=== PATIENT | male | born 1965 | race Caucasian/White ===

== ENCOUNTER → 2016-05-11 | Outpatient (CLI) | payer MEDICARE, OTHER ==
[~2016-05-11] MED LIST: ALBUAER3 INH; ALPR1TAB3 PO; BUPR300T PO; CYCL1TAB29 PO; EPIP0.3I IM; FLUT1SPR5 EACH NARE; GABA600T PO; HYDR-3583 PO; LACTCHW3 CHEW; LISI10TA PO; PRAV80TA2 PO; [UNRECOGNIZED DRUG - OTHER]
[2016-05-11 10:06] LABS: ALKALINE PHOSPHATASE 79 U/L (45-117); ALT (GPT) 40 U/L (12-78); ANION GAP 9 MEQ/L (5-15); AST (GOT) 25 U/L (15-37); BLOOD UREA NITROGEN 15 MG/DL (7-18); CHLORIDE 99 MEQ/L (98-107); GLOMERULAR FILTRATION RATE 93 ML/MIN (>89); GLUCOSE,FASTING 93 MG/DL (74-99); HDL CHOLESTEROL 47.1 MG/DL (40.0-60.0); LDL CHOLESTEROL 148 MG/DL (0-99); SODIUM (NA) 136 MEQ/L (136-145); TOTAL BILIRUBIN ADULT 0.8 MG/DL (0.2-1.0)
== END ==
LOC: CLAB 09:19
PROVIDERS: ATTEND Family Medicine
DX: E78.5 Hyperlipidemia, unspecified (principal); I10 Essential (primary) hypertension
CPT/HCPCS: 36415; 80053; 80061; 99213; G0463

== ENCOUNTER 2016-09-02 12:26 | Emergency (ER) | payer MEDICARE, OTHER ==
[~2016-09-02] VITALS: Ht 177.8 cm; Wt 75.0 kg
[~2016-09-02 12:26] MED LIST changes: -BUPR300T PO
[2016-09-02 12:28] VITALS: BP 106/57; PULSE 119; RESP 20; TEMP 98.3; O2SAT 97
--- NOTE | 2016-09-02 12:51 | PD ---
Physical Exam Time Seen by Provider: 12:50 Narrative 51 y/o male with lateral R ankle redness, ulceration which started 10 days ago. He thought that maybe a mosquito originally bit him. Vital signs reviewed. Seen at triage desk. Awaiting bed placement. Data Data Last Documented VS Vital Signs Date Time Temp Pulse Resp B/P Pulse Ox O2 Delivery O2 Flow Rate FiO2 09/02/16 12:28 98.3 119 20 106/57 97 Room Air [facility] Medical Record Reviewed: Yes Supervised Visit with CORINE: No Peter Bobby Sep 02, 2016 12:51
== END 2016-09-02 15:17 | disposition left against medical advice (07) ==
LOC: NED 12:26
DX: L97.319 Non-pressure chronic ulcer of right ankle with unspecified severity (principal); Z53.21 Procedure and treatment not carried out due to patient leaving prior to being seen by health care provider
CPT/HCPCS: 99281

== ENCOUNTER 2016-10-30 11:43 | Emergency (ER) | payer MEDICARE, OTHER ==
[~2016-10-30] VITALS: Ht 177.8 cm; Wt 78.0 kg
[2016-10-30 11:46] VITALS: BP 131/113; PULSE 107; RESP 20; TEMP 98; O2SAT 100
[2016-10-30 11:51] VITALS: BP_SYST 145; BP_SYST 147; BP_DIAS 96; PULSE 116
--- NOTE | 2016-10-30 11:51 | PD ---
Physical Exam Date Seen by Provider: Oct 30, 2016 Time Seen by Provider: 11:47 Narrative 51-year-old presents to emergency department with pain in the left leg status post fall 4 weeks ago. Patient has been seen by her primary care physician, Dr. Pizarro, and has been given orders for x-rays at [facility] which she is unable to get to. Patient has history of lumbar surgery with previous surgery by Dr. Ramos with hardware in place. Patient continues to have sciatic type symptoms in the left leg always down the leg. Patient is having to use a cane for ambulation. Pain is a 9 out of 10. Patient has multiple allergies, see list. X-rays Ordered Vital signs stable. Patient awaiting medical bed placement. Data Data Last Documented VS Vital Signs Date Time Temp Pulse Resp B/P (MAP) Pulse Ox O2 Delivery O2 Flow Rate FiO2 10/30/16 11:46 98.0 107 20 131/113 (119) 100 Room Air [facility] Medical Record Reviewed: Yes Supervised Visit with CORINE: Yes Condition: Stable Adrian Carroll Oct 30, 2016 11:51
[2016-10-30 12:30] VITALS: BP 124/85; PULSE 89; RESP 17; TEMP 97.8; O2SAT 100
[2016-10-30] MEDS ORDERED: KETOROLAC TROMETHAMINE 60 MG/2 ML (IM) VIAL IM ONE (12:45)
[2016-10-30] MEDS ORDERED: DEXAMETHASONE SOD PHOS 20 MG/5 ML VIAL IM ONE (12:45)
[2016-10-30] MEDS ORDERED: ORPHENADRINE INJ 60 MG/2 ML AMP IM ONE (12:45)
--- NOTE | 2016-10-30 12:55 | PD ---
Physical Exam Date Seen by Provider: Oct 30, 2016 Narrative Sciatica GENERAL: Patient is awake and alert and does not appear to be in any distress. SKIN: Warm and dry with no rash or lesions. HEAD: Normocephalic/atraumatic. EYES: Pupils are equal. Extraocular movements are intact. NECK: Full range of motion with no apparent pain. CARDIOVASCULAR: Regular rate and rhythm. RESPIRATORY: Nonlabored respirations. MUSCULOSKELETAL: Atraumatic. NEUROLOGICAL: Awake and alert and fully oriented. Cranial nerves are intact. He is moving all 4 extremities equally. PSYCHIATRIC: Appropriate mood and affect. Data Data Last Documented VS Vital Signs Date Time Temp Pulse Resp B/P (MAP) Pulse Ox O2 Delivery O2 Flow Rate FiO2 10/30/16 12:03 98 17 10/30/16 11:51 145/96 (112) 10/30/16 11:46 98.0 100 Room Air Orders Orders Hip, Uni(Ap&Lat) Wo Ap Pelvis (10/30/16 12:36) Spine, Lumbar Comp W/Obliq (10/30/16 12:36) Sacrum And Coccyx (10/30/16 ) Dexamethasone Inj (Decadron Inj) (10/30/16 12:45) Ketorolac Inj (Toradol Inj) (10/30/16 12:45) Orphenadrine Inj (Norflex Inj) (10/30/16 12:45) MDM Supervised Visit with CORINE: Yes Narrative Course I, Dr. John, have reviewed the advance practice practitioner's documentation and am in agreement, met with the patient face to face, made the diagnosis, and the medical decision making was done by me. *My assessment and Findings: This is a well-appearing man who presents complaining with acute exacerbation of his sciatica. The pain started after a fall. X-rays are pending. Please see Lauren Worrell's note for final diagnosis and disposition. Condition: Stable Alyssa John MD Oct 30, 2016 12:55
[2016-10-30 13:00] VITALS: BP 127/88; PULSE 89; RESP 17; TEMP 97.8; O2SAT 98
[2016-10-30] MEDS ORDERED: diphenhydrAMINE HCL 50 MG/ML VIAL IM ONE (13:00)
[2016-10-30 13:43] VITALS: RESP 17
--- NOTE | 2016-10-30 14:01 | PD ---
HPI Chief Complaint: Musculoskeletal Complaint Time Seen by Provider: 12:00 Travel History International Travel<30 days: No Contact w/Intl Traveler<30days: No Traveled to known affect area: No History of Present Illness HPI Patient is a 51-year-old male that presented to emergency for evaluation of back pain that radiates from his back to his left buttock down the left leg. Patient states that one month ago he fell while mopping the floor. When he fell he basically did a split and landed on his tailbone. He reports a history of back pain secondary to an accident that required surgical correction 9 years ago. He states his pain is a 7 out of 10 and states it's aching and shooting. He has seen his primary doctor for this 2 weeks ago. He currently takes gabapentin and hydrocodone. He reports residual numbness and weakness in his left foot secondary to the surgery he had 9 years ago. PFSH Past Medical History Anxiety: Yes Cardiovascular Problems: Yes High Cholesterol: Yes Diabetes: No Diminished Hearing: No Diverticulitis: Yes Gastrointestinal Disorders: Yes Genitourinary: Yes Headaches: Yes Hypertension: Yes Kidney Stones: Yes Musculoskeletal: Yes (chronic back pain) Psychiatric: Yes Immunizations Current: No Tetanus Vaccination: < 5 Years Influenza Vaccination: Yes Past Surgical History Genitourinary Surgery: Yes (KIDNEY STONES 11 TIMES STENTS X 2) Other Surgery: Yes (URETER LT. STENT ) Family History Family Hypercholesterolemia: Yes Social History Alcohol Use: No Tobacco Use: Yes (1/2 ppd) Substance Use: No Allergies-Medications (Allergen,Severity, Reaction): Coded Allergies: ketorolac (Verified Allergy, Severe, Shortness of Breath, 10/30/16) varenicline (Verified Allergy, Intermediate, swelling, 10/30/16) bee venom protein (honey bee) (Unverified Allergy, Mild, swollen, 10/30/16) codeine (Verified Adverse Reaction, Intermediate, ITCHING, 10/30/16) tramadol (Verified Adverse Reaction, Intermediate, itch, 10/30/16) Reported Meds & Prescriptions Reported Meds & Active Scripts Active Alprazolam 1 Mg Tab 1 Mg PO Q6H PRN Flexeril (Cyclobenzaprine HCl) 10 Mg Tab 10 Mg PO TID Proair Hfa 8.5 GM Inh (Albuterol Sulfate) 90 Mcg/Act Aer 1 Puff INH Q4H PRN 108 mcg/actuation Hydrocodone-Acetaminophen 10-325 mg Tab 1 Tab PO Q6H PRN Lisinopril-Hctz 10-12.5 Mg Tab 1 Tab PO DAILY Pravastatin 80 Mg Tab 40 Mg PO HS Lactinex (Lactobacillus Acidophilus) 1 Chew 1 Tab CHEW BID Gabapentin 600 Mg Tab 600 Mg PO TID Flonase Nasal [place] (Fluticasone Nasal [place]) 50 Mcg/Act [place] 100 Mcg EACH NARE BID Reported Epipen 2-Db Inj (Epinephrine) 0.3 Mg/0.3 Ml Pfpen 0.3 Mg IM ONCE PRN Review of Systems Except as stated in HPI: all other systems reviewed are Neg Musculoskeletal: Positive: Myalgias, Pain Physical Exam Narrative GENERAL: Thin, well-developed, alert male. Resting comfortably in no acute distress. SKIN: Warm and dry. HEAD: Atraumatic. Normocephalic. EYES: Pupils equal and round. No scleral icterus. No injection or drainage. ENT: No nasal bleeding or discharge. Mucous membranes pink and moist. NECK: Trachea midline. No JVD. CARDIOVASCULAR: Regular rate and rhythm. RESPIRATORY: No accessory muscle use. Clear to auscultation. Breath sounds equal bilaterally. GASTROINTESTINAL: Abdomen soft, non-tender, nondistended. Hepatic and splenic margins not palpable. MUSCULOSKELETAL: Extremities without clubbing, cyanosis, or edema. No obvious deformities. NEUROLOGICAL: Awake and alert. No obvious cranial nerve deficits. Motor grossly within normal limits. Five out of 5 muscle strength in the arms and legs. Normal speech. PSYCHIATRIC: Appropriate mood and affect; insight and judgment normal. Data Data Last Documented VS Vital Signs Date Time Temp Pulse Resp B/P (MAP) Pulse Ox O2 Delivery O2 Flow Rate FiO2 10/30/16 13:43 17 10/30/16 13:00 97.8 89 127/88 (101) 98 Room Air Orders Orders Hip, Uni(Ap&Lat) Wo Ap Pelvis (10/30/16 12:36) Spine, Lumbar Comp W/Obliq (10/30/16 12:36) Sacrum And Coccyx (10/30/16 ) Dexamethasone Inj (Decadron Inj) (10/30/16 12:45) Ketorolac Inj (Toradol Inj) (10/30/16 12:45) Orphenadrine Inj (Norflex Inj) (10/30/16 12:45) Diphenhydramine Inj (Benadryl Inj) (10/30/16 13:00) [facility] Medical Decision Making Medical Screen Exam Complete: Yes Emergency Medical Condition: Yes Interpretation(s) Last Impressions Lumbar Spine X-Ray 10/30/16 1236 Signed Impressions: Service Date/Time: Sunday, October 30, 2016 13:05 - CONCLUSION: 1. No acute fracture malalignment. 2. Remote laminectomy and fusion at the L5-S1 level which is stable and intact. 3. Mild to moderate degenerative disc change at the L4-5 level. Michael Up MD Hip X-Ray 10/30/16 1236 Signed Impressions: Service Date/Time: Sunday, October 30, 2016 13:06 - CONCLUSION: Unremarkable examination of the left hip. Michael Up MD Sacrum and Coccyx X-Ray 10/30/16 0000 Signed Impressions: Service Date/Time: Sunday, October 30, 2016 13:08 - CONCLUSION: Distal oblique sacral fracture. Michael Up MD Vital Signs Date Time Temp Pulse Resp B/P (MAP) Pulse Ox O2 Delivery O2 Flow Rate FiO2 10/30/16 13:43 17 10/30/16 13:00 97.8 89 17 127/88 (101) 98 Room Air 10/30/16 12:30 97.8 89 17 124/85 (98) 100 Room Air 10/30/16 12:03 98 17 10/30/16 11:51 116 145/96 (112) 10/30/16 11:46 98.0 107 20 131/113 (119) 100 Room Air Differential Diagnosis Sciatica versus fracture versus sprain versus strain versus discogenic pain versus other Narrative Course Patient is a 51-year-old male presenting with 1 month of left buttock and tailbone pain. Exam appears most consistent with sciatica. Patient was supposed to have outpatient imaging done but was unable to get a [place] and his primary doctor told him to come to the emergency department. X-ray of the lumbar spine and hip ordered and pending. Patient given Toradol, Norflex, dexamethasone. Patient was asked about his allergies and he initially reported as bees and codeine. He was administered the Toradol and felt as if his throat was getting swollen. He was then administered 50 mg IM Benadryl. Patient's airway remains patent, he is resting in no acute distress. X-ray of the left hip shows no acute abnormality X-ray of the lumbar spine shows surgical changes, no acute abnormality identified X-ray of the sacrum and coccyx shows Distal oblique sacral fracture Patient has been resting comfortably, he is not exhibiting any signs of allergic reaction to the Toradol that was administered previously. He states that it was one of those "T" words he is allergic to. At this time patient will be discharged home, he was given copies of radiology reports to take to his primary doctor. He was encouraged to obtain a doughnut to sit on. He will be given a short course of oral steroids as well as ibuprofen. His primary doctor in 1-2 days and he was given strict return call shows. Patient verbalized understanding of instructions. Patient is stable for discharge. Diagnosis Primary Impression: Sciatica Qualified Codes: M54.32 - Sciatica, left side Additional Impression: Sacral fracture, closed Qualified Codes: S32.10XA - Unspecified fracture of sacrum, initial encounter for closed fracture Referrals: Primary Care Physician 2 days Patient Instructions: General Instructions, Sacral Fracture (ED), Sciatica (ED) Additional Instructions: Follow-up with your primary doctor Take medications as directed Obtain a doughnut pillow to sit on from local pharmacy Return to emergency department for any new or worsening symptoms Med/Other Pt SpecificInfo: Prescription(s) given Scripts Prednisone (Prednisone) 50 Mg Tab 50 MG PO DAILY for 5 Days, #5 TAB 0 Refills Prov: Lauren Sanchez 10/30/16 Ibuprofen (Ibuprofen) 800 Mg Tab 800 MG PO Q6HR Y for PAIN, #40 TAB 0 Refills Prov: Lauren Sanchez 10/30/16 Disposition: 01 DISCHARGE HOME Condition: Stable Lauren Sanchez Oct 30, 2016 14:01
--- NOTE | 2016-10-30 14:07 | RADRPT ---
EXAM DATE/TIME: 10/30/2016 13:06 [facility] COMPARISON: No previous studies available for comparison. INDICATIONS : Patient states fell one month ago, Complains of pain that radiates down leg. MEDICAL HISTORY : Chronic Back Pain SURGICAL HISTORY : Fusion, lumbar. Renal Stents ENCOUNTER: Initial ACUITY: 1 month PAIN SCORE: 8/10 LOCATION: Left pelvis FINDINGS: A two view examination of the left hip was performed. The primary and secondary trabecular pattern o f the femoral neck is intact. The hip joint is of normal width without significant sclerosis or bony hypertrophy. The acetabulum is grossly intact. CONCLUSION: Unremarkable examination of the left hip. Michael Up MD on October 30, 2016 at 14:05 Board Certified Radiologist. This report was verified electronically.
--- NOTE | 2016-10-30 14:07 | RADRPT ---
EXAM DATE/TIME: 10/30/2016 13:05 [facility] COMPARISON: SPINE LUMBAR LTD (AP & LAT), November 02, 2013, 14:01. INDICATIONS : Patient states fell one month ago, Complains of pain that radiates down leg. MEDICAL HISTORY : Chronic back pain SURGICAL HISTORY : Fusion, lumbar. Renal Stents ENCOUNTER: Initial ACUITY: 1 month PAIN SCORE: 10/10 LOCATION: Left lumbar spine FINDINGS: AP, lateral and oblique views of the lumbar spine were obtained and demonstrate that the patient is s tatus post remote laminectomy and fusion at the L5-S1 level with bilateral pedicle screws and posteri or fixation rods. Bone graft material and markers are noted in the interspace which is solid in appea gabby. There is no acute fracture or malalignment. Degenerative changes are noted at the L4-5 level w ith mild disc space narrowing and sclerosis. The facet joints are intact. The sacrum appears unremark able. CONCLUSION: 1. No acute fracture malalignment. 2. Remote laminectomy and fusion at the L5-S1 level which is stable and intact. 3. Mild to moderate degenerative disc change at the L4-5 level. Michael Up MD on October 30, 2016 at 14:03 Board Certified Radiologist. This report was verified electronically.
--- NOTE | 2016-10-30 14:09 | RADRPT ---
EXAM DATE/TIME: 10/30/2016 13:08 [facility] COMPARISON: SPINE LUMBAR LTD (AP & LAT), November 02, 2013, 14:01. INDICATIONS : Patient states fell one month ago, Complains of pain that radiates down leg. MEDICAL HISTORY : Chronic Back Pain SURGICAL HISTORY : Fusion, lumbar. Renal Stents ENCOUNTER: Initial ACUITY: 1 month PAIN SCORE: 10/10 LOCATION: Left pelvis FINDINGS: AP and lateral views of the sacrum and coccyx were obtained and demonstrate an oblique fracture throu gh the distal sacrum with slight distraction and minimal anterior displacement of the distal fracture fragment. There is overlying soft tissue prominence. The sacral ala are intact. Postoperative change s are noted in the lower lumbar spine status post laminectomy and fusion at the L5-S1 level. CONCLUSION: Distal oblique sacral fracture. Michael Up MD on October 30, 2016 at 14:05 Board Certified Radiologist. This report was verified electronically.
[2016-10-30] MEDS ORDERED: PRED50 PO (14:29)
[2016-10-30] MEDS ORDERED: IBUP800T23 PO (14:29)
[2016-10-30 14:37] VITALS: BP 126/81; TEMP 97.8
[2016-11-08] MEDS ORDERED: CANE/ALUMINUM/A1 MIS (10:13)
[2016-11-08] MEDS ORDERED: [UNRECOGNIZED DRUG - OTHER] (10:13)
[2016-11-08] MEDS ORDERED: FLUT1SPR5 EACH NARE (10:15)
[2016-11-08] MEDS ORDERED: PRAV80TA2 PO (10:15)
[2016-11-08] MEDS ORDERED: ZANT300T PO (10:15)
[2016-11-08] MEDS ORDERED: LACTCHW3 CHEW (10:15)
[2016-11-08] MEDS ORDERED: LISI10TA PO (10:15)
[2016-11-08] MEDS ORDERED: ALBUAER3 INH (10:15)
[2016-11-08] MEDS ORDERED: CYCL1TAB29 PO (10:15)
[2016-11-08] MEDS ORDERED: HYDR-3583 PO ×2 (10:21→11:14)
[2016-11-08] MEDS ORDERED: ALPR1TAB3 PO (10:21)
[2016-11-08] MEDS ORDERED: OXYC-392 PO (10:51)
[2016-11-09] MEDS ORDERED: PRAV80TA2 PO (08:50)
== END 2016-10-30 14:38 | disposition home or self-care (01) ==
LOC: NEPD 11:43
DX: M54.32 Sciatica, left side (principal); S32.10XA Unspecified fracture of sacrum, initial encounter for closed fracture; I10 Essential (primary) hypertension; W01.0XXA Fall on same level from slipping, tripping and stumbling without subsequent striking against object, initial encounter; Y93.E5 Activity, floor mopping and cleaning; Y92.009 Unspecified place in unspecified non-institutional (private) residence as the place of occurrence of the external cause; Z72.0 Tobacco use
CPT/HCPCS: 72110; 72220; 73502; 96372; 99284; J1100; J1200; J1885; J2360

== ENCOUNTER 2016-11-05 07:21 | Emergency (ER) | payer MEDICARE, OTHER ==
[~2016-11-05] VITALS: Ht 177.8 cm; Wt 76.0 kg
[~2016-11-05 07:21] MED LIST changes: +IBUP800T23 PO; +PRED50 PO; -[UNRECOGNIZED DRUG - OTHER]
[2016-11-05 07:23] VITALS: BP 172/127; PULSE 117; RESP 13; TEMP 97.2; O2SAT 97
[2016-11-05] MEDS ORDERED: ORPHENADRINE INJ 60 MG/2 ML AMP IM ONE (08:30)
[2016-11-05] MEDS ORDERED: DEXAMETHASONE SOD PHOS 4 MG/ML VIAL IM ONE (08:30)
[2016-11-05] MEDS ORDERED: ZANT300T PO (08:31)
[2016-11-05] MEDS ORDERED: PRED20 PO (08:31)
--- NOTE | 2016-11-05 08:31 | PD ---
HPI Chief Complaint: Pain: Acute or Chronic Time Seen by Provider: 07:32 Travel History International Travel<30 days: No Contact w/Intl Traveler<30days: No Traveled to known affect area: No History of Present Illness HPI 51-year-old male complains of severe back pain and left leg pain. Patient has history of chronic back pain with sciatica. Patient has been taking hydrocodone and Flexeril for pain. Patient states the pain is worse this morning. Patient has appointment with pain management and personal physician for back pain. Patient denies any new injury. Patient recently was diagnosed with sacral fracture. Patient denies any urinary or bowel incontinence. Patient denies any focal weakness and numbness of lower extremity. PFSH Past Medical History Anxiety: Yes Cardiovascular Problems: Yes High Cholesterol: Yes Diabetes: No Diminished Hearing: No Diverticulitis: Yes Gastrointestinal Disorders: Yes Genitourinary: Yes Headaches: Yes Hypertension: Yes Kidney Stones: Yes Musculoskeletal: Yes (chronic back pain) Psychiatric: Yes Immunizations Current: No Past Surgical History Genitourinary Surgery: Yes (KIDNEY STONES 11 TIMES STENTS X 2) Other Surgery: Yes (URETER LT. STENT ) Family History Family Hypercholesterolemia: Yes Social History Alcohol Use: No Tobacco Use: Yes (/2 ppd) Substance Use: No Allergies-Medications (Allergen,Severity, Reaction): Coded Allergies: ketorolac (Verified Allergy, Severe, Shortness of Breath, 11/05/16) varenicline (Verified Allergy, Intermediate, swelling, 11/05/16) bee venom protein (honey bee) (Unverified Allergy, Mild, swollen, 11/05/16) codeine (Verified Adverse Reaction, Intermediate, ITCHING, 11/05/16) tramadol (Verified Adverse Reaction, Intermediate, itch, 11/05/16) Reported Meds & Prescriptions Reported Meds & Active Scripts Active Prednisone 50 Mg Tab 50 Mg PO DAILY 5 Days Ibuprofen 800 Mg Tab 800 Mg PO Q6HR PRN Alprazolam 1 Mg Tab 1 Mg PO Q6H PRN Flexeril (Cyclobenzaprine HCl) 10 Mg Tab 10 Mg PO TID Proair Hfa 8.5 GM Inh (Albuterol Sulfate) 90 Mcg/Act Aer 1 Puff INH Q4H PRN 108 mcg/actuation Hydrocodone-Acetaminophen 10-325 mg Tab 1 Tab PO Q6H PRN Lisinopril-Hctz 10-12.5 Mg Tab 1 Tab PO DAILY Pravastatin 80 Mg Tab 40 Mg PO HS Lactinex (Lactobacillus Acidophilus) 1 Chew 1 Tab CHEW BID Gabapentin 600 Mg Tab 600 Mg PO TID Flonase Nasal [place] (Fluticasone Nasal [place]) 50 Mcg/Act [place] 100 Mcg EACH NARE BID Reported Epipen 2-Db Inj (Epinephrine) 0.3 Mg/0.3 Ml Pfpen 0.3 Mg IM ONCE PRN Review of Systems General / Constitutional: No: Fever Eyes: No: Visual changes HENT: No: Headaches Cardiovascular: No: Chest Pain or Discomfort Respiratory: No: Shortness of Breath Gastrointestinal: No: Abdominal Pain Genitourinary: No: Dysuria Musculoskeletal: No: Pain Skin: No Rash Neurologic: No: Weakness Psychiatric: No: Depression Endocrine: No: Polydipsia Hematologic/Lymphatic: No: Easy Bruising Physical Exam Narrative GENERAL: Well-nourished, well-developed patient. SKIN: Focused skin assessment warm/dry. HEAD: Normocephalic. EYES: No scleral icterus. No injection or drainage. NECK: Supple, trachea midline. No JVD or lymphadenopathy. CARDIOVASCULAR: Regular rate and rhythm without murmurs, gallops, or rubs. RESPIRATORY: Breath sounds equal bilaterally. No accessory muscle use. GASTROINTESTINAL: Abdomen soft, non-tender, nondistended. MUSCULOSKELETAL: No cyanosis, or edema. BACK: Patient has moderate tenderness on palpation lower lumbar area without obvious deformity. No CVA tenderness. Neurologic exam normal. Data Data Last Documented VS Vital Signs Date Time Temp Pulse Resp B/P (MAP) Pulse Ox O2 Delivery O2 Flow Rate FiO2 11/05/16 07:23 97.2 117 13 172/127 (142) 97 Orders Orders Orphenadrine Inj (Norflex Inj) (11/05/16 08:30) Dexamethasone Inj (Decadron Inj) (11/05/16 08:30) MDM Medical Decision Making Medical Screen Exam Complete: Yes Emergency Medical Condition: Yes Differential Diagnosis Differential diagnosis including acute exacerbation low back pain, sciatica, sacral fracture,HNP Narrative Course 51-year-old male with acute exacerbation low back pain. History of sciatica and sacral fracture. Norflex 60 mg IM. Decadron 8 mg IM. Diagnosis Primary Impression: Exacerbation of chronic back pain Additional Impressions: Sciatica Qualified Codes: M54.32 - Sciatica, left side Sacral fracture, closed Qualified Codes: S32.10XG - Unspecified fracture of sacrum, subsequent encounter for fracture with delayed healing Patient Instructions: General Instructions Additional Instructions: Continue with medications. Prednisone is directed. Follow-up with personal physician, orthopedist and pain management. Med/Other Pt SpecificInfo: Prescription(s) given Scripts Ranitidine (Zantac) 300 Mg Tab 300 MG PO DAILY, #10 TAB 0 Refills Prov: Tevin Garcia MD 11/05/16 Prednisone (Prednisone) 20 Mg Tab 20 MG PO BID, #10 TAB 0 Refills Prov: Tevin Garcia MD 11/05/16 Disposition: 01 DISCHARGE HOME Condition: Stable Tevin Garcia MD Nov 05, 2016 08:31
[2016-11-08] MEDS ORDERED: CANE/ALUMINUM/A1 MIS (10:13)
[2016-11-08] MEDS ORDERED: [UNRECOGNIZED DRUG - OTHER] (10:13)
[2016-11-08] MEDS ORDERED: PRAV80TA2 PO (10:15)
[2016-11-08] MEDS ORDERED: LISI10TA PO (10:15)
[2016-11-08] MEDS ORDERED: FLUT1SPR5 EACH NARE (10:15)
[2016-11-08] MEDS ORDERED: LACTCHW3 CHEW (10:15)
[2016-11-08] MEDS ORDERED: ZANT300T PO (10:15)
[2016-11-08] MEDS ORDERED: ALBUAER3 INH (10:15)
[2016-11-08] MEDS ORDERED: CYCL1TAB29 PO (10:15)
[2016-11-08] MEDS ORDERED: HYDR-3583 PO ×2 (10:21→11:14)
[2016-11-08] MEDS ORDERED: ALPR1TAB3 PO (10:21)
[2016-11-08] MEDS ORDERED: OXYC-392 PO (10:51)
[2016-11-09] MEDS ORDERED: PRAV80TA2 PO (08:50)
== END 2016-11-05 09:25 | disposition home or self-care (01) ==
LOC: NEPC 07:21
DX: M54.9 Dorsalgia, unspecified (principal); G89.29 Other chronic pain; M54.32 Sciatica, left side; S32.10XD Unspecified fracture of sacrum, subsequent encounter for fracture with routine healing; F41.9 Anxiety disorder, unspecified; E78.00 Pure hypercholesterolemia, unspecified; K57.92 Diverticulitis of intestine, part unspecified, without perforation or abscess without bleeding; I10 Essential (primary) hypertension; X58.XXXD Exposure to other specified factors, subsequent encounter
CPT/HCPCS: 96372; 99284; J1100; J2360

== ENCOUNTER → 2017-01-28 | Outpatient (CLI) | payer MEDICARE, OTHER ==
[~2017-01-28] MED LIST changes: +CANE/ALUMINUM/A1 MIS; +CYCL10TA PO; -CYCL1TAB29 PO; +IBUP1TAB7 PO; -IBUP800T23 PO; -PRED50 PO; +ZANT300T PO; +[UNRECOGNIZED DRUG - OTHER]
[2017-01-28 13:27] LABS: AUTOMATED NEUTROPHIL # 4.9 TH/MM3 (1.8-7.7); BASOPHIL % 0.7 % (0.0-2.0); EOSINOPHIL # 0.1 TH/MM3 (0-0.4); EOSINOPHIL % 0.9 % (0.0-4.0); HEMATOCRIT 45.9 % (39.0-51.0); HEMO FLAGS DIFF FINAL; LYMPH % 21.3 % (9.0-44.0); LYMPHOCYTE # 1.5 TH/MM3 (1.0-4.8); MEAN CELL VOLUME 92.6 FL (80.0-100.0); MEAN CORPUSCULAR HEMOGLOBIN 32.1 PG (27.0-34.0); MEAN CORPUSCULAR HGB CONC 34.7 % (32.0-36.0); MONO % 8.3 % (0.0-8.0); NEUT % 68.8 % (16.0-70.0); PLATELET COUNT 375 TH/MM3 (150-450); RED BLOOD COUNT 4.96 MIL/MM3 (4.50-5.90); RED CELL DISTRIBUTION WIDTH 13.2 % (11.6-17.2); WHITE BLOOD COUNT 7.1 TH/MM3 (4.0-11.0)
[2017-01-28 13:41] LABS: ANION GAP 4 MEQ/L (5-15); AST (GOT) 7 U/L (15-37); BICARBONATE 31.9 MEQ/L (21.0-32.0); BLOOD UREA NITROGEN 14 MG/DL (7-18); CHLORIDE 101 MEQ/L (98-107); GLOMERULAR FILTRATION RATE 99 ML/MIN (>89); GLUCOSE,FASTING 103 MG/DL (74-99); POTASSIUM 3.8 MEQ/L (3.5-5.1); SODIUM (NA) 137 MEQ/L (136-145)
[2017-01-28 13:44] LABS: ALKALINE PHOSPHATASE 61 U/L (45-117); ALT (GPT) 31 U/L (12-78); HDL CHOLESTEROL 44.7 MG/DL (40.0-60.0); LDL CHOLESTEROL 118 MG/DL (0-99); TOTAL BILIRUBIN ADULT 1.7 MG/DL (0.2-1.0)
== END ==
LOC: CLAB 13:01
PROVIDERS: ATTEND Family Medicine
DX: I10 Essential (primary) hypertension (principal); E78.5 Hyperlipidemia, unspecified; J44.9 Chronic obstructive pulmonary disease, unspecified
CPT/HCPCS: 36415; 80053; 80061; 85025; 99214; G0463